=== PATIENT | female | born 1990 | race Caucasian/White ===

== ENCOUNTER 2016-09-15 10:00 | Day surgery (SDC) | payer MEDICAID ==
[2016-09-15] MEDS ORDERED: ceFAZolin 2 GM/DEXTROSE 100 ML IV ONE (11:00)
[2016-09-15] MEDS ORDERED: LR 1,000 ML IV SCH (11:00)
[2016-09-15 11:18] LABS: % IMMATURE GRANULYOCYTES 0.4 % (0.0-1.1); ABSOLUTE IMMATURE GRANULOCYTES 0.03 10^3/uL (0.00-0.10); ADD DIFF? NO; ADD MORPH? NO; ADD SCAN? NO; ATYPICAL LYMPHOCYTE FLAG 0 (0-99); FRAGMENT RBC FLAG 0 (0-99); HEMATOCRIT 46.5 % (38.0-47.0); HEMOGLOBIN 16.4 g/dL (12.6-16.3); LEFT SHIFT FLG 0 (0-99); LIPEMIA HEMOLYSIS FLAG 90 (0-99); MEAN CELL HEMOGLOBIN 31.7 pg (27.9-34.1); MEAN CELL HEMOGLOBIN CONCENTR. 35.3 g/dL (32.4-36.7); MEAN CELL VOLUME 89.8 fL (81.5-99.8); MEAN PLATELET VOLUME 10.9 fL (8.7-11.7); PLATELET CLUMPS FLAG 0 (0-99); PLATELET COUNT 241 10^3/uL (150-400); RED BLOOD CELL COUNT 5.18 10^6/uL (4.18-5.33); RED CELL DISTRIBUTION WIDTH 12.5 % (11.5-15.2)
[2016-09-15] MEDS ORDERED: PROPOFOL 200 MG/20 ML VIAL ONE ×3 (12:02→12:42)
[2016-09-15] MEDS ORDERED: fentaNYL 100 MCG/2 ML INJ ONE (12:02)
[2016-09-15] MEDS ORDERED: LIDOCAINE 2% 5 ML SDV ONE (12:03)
[2016-09-15] MEDS ORDERED: KETOROLAC 30 MG/1 ML SDV ONE (12:03)
[2016-09-15] MEDS ORDERED: DEXAMETHASONE 4 MG/ML VIAL ONE (12:03)
[2016-09-15] MEDS ORDERED: LIDOCAINE 1% 30 ML SDV IF ONE (12:30)
[2016-09-15] MEDS ORDERED: MIDAZOLAM 2 MG/2 ML VIAL IVP ONE (12:30)
--- NOTE | 2016-09-15 13:41 | SUROPNOTE ---
[facility] Operative Report - Surgery Date: 09/15/16 Procedure: Suction dilation and curettage under ultrasound guidance Preoperative diagnosis: Early failure, unsuccessful medical management Postoperative diagnosis: Same Findings: Small anteverted uterus. Minimal tissue removed, consistent with decidua. No gestational sac seen, but uterus noted to be empty during intraoperative and postoperative ultrasound. Anesthesia: MAC Anesthesiologist: Warm EBL: Minimal Outcome: Stable to PACU Indications: Macey is a 25 year old with an early failure who attempted medical management with misoprostol unsuccessfully and presents for D&C. Bedside US prior to procedure shows a small amount of fluid and tissue in the uterus, but no evidence of a viable . Procedure: Patient was taken to the operating room and a time out was performed. MAC anesthesia was administered. She was prepped and draped in the normal sterile fashion in low lithotomy with chong stirrups. IV kefzol was administered. She had already emptied her bladder. The speculum was placed. A paracervical block was performed with 1% plain lidocaine, total of 12 ml. The cervix was dilated to 9 mm with hegar dilators. The US was emptied using an 8 mm curette. As only minimal tissue was noted to be removed, an intraoperative transabdominal and transvaginal ultrasound were done, both confirming the correct placement of the curette and also a uterus that was empty. Additional passes were performed and the cavity was noted to be empty. The procedure was ended, and the patient was awakened and brought to the recovery room in good condition. Of note no gestational sac was seen in the extracted tissue, but again the uterus appeared empty on US and by feel during the procedure. Her [facility] will be trended to ensure all tissue has been removed. All counts correct x 2. Mima Vang MD [phone]
== END 2016-09-15 14:30 | disposition home or self-care (01) ==
LOC: FOBOP 10:00
PROVIDERS: ATTEND Obstetrics & Gynecology
PROC: 10D17ZZ Extraction of Products of Conception, Retained, Via Natural or Artificial Opening (ICD-10-PCS; principal; 2016-09-15)
DX: O02.1 Missed abortion (principal); Z3A.00 Weeks of gestation of pregnancy not specified
CPT/HCPCS: J0690; J1100; J1885; J2704; J3010